=== PATIENT | female | born 1965 | race Two or more races ===

== ENCOUNTER 2016-11-21 19:31 | Inpatient (IN) | payer BC ==
[~2016-11-21] VITALS: Ht 170.2 cm; Wt 107.5 kg
[~2016-11-21 19:31] MED LIST: BACLOFEN10 MG ORAL; CIPRODEX OTIC7.5 M1 LEFT EAR; CRESTOR10 M1 ORAL; GLIPIZIDE5 MG ORAL; INVOKANA100 MG PO; LISINOPRIL5 MG ORAL; LYRICA75 M1 ORAL; NESINA25 MG PO; REGLAN10 MG ORAL; SYNTHROID150 MCG ORAL; cholesterol med PO
[2016-11-21] MEDS ORDERED: LYRICA75 M1 ORAL (19:43)
[2016-11-21] MEDS ORDERED: METFORMIN HCL1000 M1 ORAL (19:43)
[2016-11-21] MEDS ORDERED: GLYXAMBI 25 MG1 EACH PO ×2 (19:43→23:45)
[2016-11-21] MEDS ORDERED: CRESTOR10 M2 ORAL (19:43)
[2016-11-21] MEDS ORDERED: SYNTHROID25 MCG ORAL (19:43)
--- NOTE | 2016-11-21 19:53 | Emergency Room Report ---
History of Present Illness General Chief Complaint: Chest Pain Source: Patient Present Illness HPI Is a 51-year-old female with a history of hypertension. She also has a history of gastric bypass and subsequent incisional hernia surgery. She presents with chief complaint of chest pain and palpitation. Has been on off for last 2 weeks. She said her heart was beating fast for a minute or 2. Now with pressure to her chest area. Radiating to the right side. Also to the back. No nausea no vomiting. No exertional component. She is under more stress recently because her is in the hospital and had bypass surgery. No diaphoresis. No nausea vomiting Allergies: Coded Allergies: MELON (Verified Allergy, Severe, rapid heartbeat, coughing, n/v, 07/12/15) PEANUT (Verified Allergy, Severe, sob, throat closes, 07/12/15) strawberry, melon, (coughing, rapid heartbeat,) venigar wine (rapid heartbeat, coughing), eggplant (nausea/vomiting/coughing) zucchini (rapid heartbeat, coughing, n/v) STRAWBERRY (Verified Allergy, Severe, sob, throat closes, 07/12/15) TRAMADOL (Verified Allergy, Severe, dizziness, nauseaous, 07/12/15) ASPIRIN (Verified Adverse Reaction, Intermediate, 06/06/15) stomach upset KETOROLAC (Verified Adverse Reaction, Intermediate, 06/06/15) stomach upset Uncoded Allergies: eggplant/zucchini (Allergy, Severe, n/v, coughing, rapid heartbeat, 07/12/15 ) venigar wine (Allergy, Severe, rapid heartbeat, coughing, 07/12/15) Patient History Past Medical History: see triage record, old chart reviewed, HTN Past Surgical History: other - Gastric bypass. Hernia surgery. Pertinent Family History: none Social History: Denies: smoking Last Menstrual Period: NOT ANYMORE Now: No Immunizations: other Reviewed Nursing Documentation: PMH: Agreed, PSxH: Agreed Nursing Documentation-PMH Hx Cardiac Problems: Yes Hx Hypertension: Yes Hx Diabetes: Yes Hx Cancer: No Hx Gastrointestinal Problems: Yes - ABDOMINAL PAIN/BLOATING/NAUSEA Review of Systems Eye: Denies: blurred vision, eye pain ENT: Denies: ear pain, nose congestion, throat swelling Respiratory: Denies: cough, shortness of breath Cardiovascular: Reports: chest pain, palpitations Gastrointestinal: Denies: abdominal pain, diarrhea, nausea, vomiting Musculoskeletal: Denies: back pain, joint pain Skin: Denies: rash Neurological: Denies: headache, numbness Endocrine: Denies: increased thirst, increased urine Hematologic/Lymphatic: Denies: easy bruising All Other Systems: negative except mentioned in HPI Physical Exam Vital Signs Date Time Temp Pulse Resp B/P Pulse Ox O2 Delivery O2 Flow Rate FiO2 11/21/16 19:34 97.5 83 20 151/95 98 Room Air vitals with hypertension Sp02 EP Interpretation: reviewed, normal General Appearance: well appearing, no apparent distress, alert Head: normocephalic, atraumatic Eyes: bilateral eye EOMI, bilateral eye PERRL ENT: hearing grossly normal, normal pharynx Neck: full range of motion, supple, no meningismus Respiratory: chest non-tender, lungs clear, normal breath sounds Cardiovascular #1: regular rate, rhythm, no murmur Gastrointestinal: normal bowel sounds, non tender, no mass, no organomegaly, no bruit, non-distended Musculoskeletal: back normal, gait/station normal, normal range of motion Psychiatric: mood/affect normal Skin: warm/dry Medical Decision Making Diagnostic Impression: Primary Impression: Chest pain Qualified Codes: R07.9 - Chest pain, unspecified Additional Impression: Palpitations ER Course Patient presents with chest pain. Also has palpitation. This may be stress related. She does have risk factor for CAD with hypertension, diabetes, obesity. Will admit for further workup. Patient's primary care doctor is Dr. Bhardwaj but because of insurance, she will be admitted to Dr. Brownlee. I discussed the case with both these doctors. EKG Diagnostic Results EKG Time: 20:00 Rate: normal Rhythm: NSR ST Segments: no acute changes Rhythm Strip Diag. Results Rhythm Strip Time: 20:00 EP Interpretation: yes Rate: 70 Rhythm: NSR, no PVC's, no ectopy Chest X-Ray Diagnostic Results Chest X-Ray Diagnostic Results : Chest X-Ray Ordered: Yes # of Views/Limited/Complete: 1 View Indication: Chest Pain EP Interpretation: Yes Interpretation: no consolidation, no effusion, no pneumothorax, no acute cardiopulmonary disease Impression: No acute disease Interpreting ER Provider: Electronically signed by Dc Hathaway MD Last Vital Signs Date Time Temp Pulse Resp B/P Pulse Ox O2 Delivery O2 Flow Rate FiO2 11/21/16 19:34 97.5 83 20 151/95 98 Room Air Status: improved Disposition: ADMITTED INPATIENT Condition: Serious DC HATHAWAY M.D. Nov 21, 2016 19:53
[2016-11-21] MEDS ORDERED: Pantoprazole Inj IVP ONE (20:00)
[2016-11-21] MEDS ORDERED: Mylanta II UD 30ml ORAL ONE (20:00)
[2016-11-21] MEDS ORDERED: Aspirin Baby 81mg ORAL ONE (20:00)
[2016-11-21 20:05] VITALS: BP 146/69
[2016-11-21 20:20] LABS: EOSINOPHILS % (AUTO) 1.1 % (0.0-3.0); LYMPHOCYTES % (AUTO) 25.9 % (20.0-45.0); MEAN CORPUSCULAR HGB CONC 30.6 G/DL (32.0-36.0); MEAN CORPUSCULAR VOLUME 78 FL (80-99); MEAN PLATELET VOLUME 10.5 FL (6.5-10.1); NEUTROPHILS % (AUTO) 66.1 % (45.0-75.0); PLATELET COUNT 228 K/UL (150-450); RED BLOOD COUNT 4.99 M/UL (4.20-5.40); RED CELL DISTRIBUTION WIDTH 15.5 % (11.6-14.8)
[2016-11-21 20:39] LABS: ALBUMIN/GLOBULIN RATIO 1.5 (1.0-2.7); CALCIUM 9.7 mg/dL (8.6-10.2); GLOMERULAR FILTRATION RATE 58.2 mL/min (>60); POTASSIUM 4.3 mEQ/L (3.4-4.9); TOTAL PROTEIN 7.6 g/dL (6.6-8.7); TROPONIN I < 0.30 ng/mL (<=0.30)
[2016-11-21 20:47] LABS: APPEARANCE,URINE CLEAR; KETONES,URINE NEGATIVE (NEGATIVE); LEUKOCYTE ESTERASE ,URINE NEGATIVE (NEGATIVE); NITRITE,URINE NEGATIVE (NEGATIVE); PH,URINE 8 (4.5-8.0); PROTEIN,URINE NEGATIVE (NEGATIVE); UROBILINOGEN,URINE NORMAL MG/DL (0.0-1.0)
[2016-11-21 20:49] LABS: CKMB 1.9 ng/mL (< 3.8)
[2016-11-21] MEDS ORDERED: Morphine Sulfate 4mg/ml Inj IVP ONE (21:15)
[2016-11-21 21:26] VITALS: BP 140/60
[2016-11-21 22:20] VITALS: BP 138/72
[2016-11-21] MEDS ORDERED: Diltiazem 25mg/5ml IV PRN (22:45)
[2016-11-21] MEDS ORDERED: DuoNeb 0.5-3(2.5)mg/3ml neb HHN PRN (22:45)
[2016-11-21] MEDS ORDERED: Enalaprilat 2.5mg/2ml Inj IV PRN (22:45)
[2016-11-21] MEDS ORDERED: Nitroglycerin Subl 0.4mg tab (Bottle Of 25) SL PRN (22:45)
[2016-11-21] MEDS ORDERED: Miralax 17gm pkt ORAL PRN (22:45)
[2016-11-21] MEDS ORDERED: Morphine Sulfate 2mg/ml Inj IVP PRN (22:45)
[2016-11-21] MEDS ORDERED: Ketorolac 30mg Inj IV PRN (22:45)
[2016-11-21 22:50] VITALS: BP 125/65
[2016-11-21] MEDS ORDERED: Lyrica 75mg cap ORAL ONE (23:45)
[2016-11-21] MEDS ORDERED: Baclofen PO (23:45)
[2016-11-21] MEDS ORDERED: LEVOTHYROXINE25 MCG ORAL (23:45)
[2016-11-21] MEDS ORDERED: Pregabalin PO (23:45)
[2016-11-21] MEDS ORDERED: METFORMIN HCL500 M1 ORAL (23:45)
[2016-11-22] VITALS (7 sets, daily range): BP systolic 114–140; BP diastolic 60–75
[2016-11-22] MEDS: Heparin 5000 units/ml inj SUBQ SCH ×3 (06:12→21:14)
[2016-11-22] MEDS: NovoLOG Insulin Flexpen SUBQ SCH ×4 (06:13→21:13)
[2016-11-22] MEDS ORDERED: SYNTHROID175 MCG ORAL (07:08)
[2016-11-22 07:23] LABS: BASOPHILS % (AUTO) 0.7 % (0.0-2.0); MEAN CORPUSCULAR HEMOGLOBIN 23.9 PG (27.0-31.0); MEAN CORPUSCULAR HGB CONC 30.6 G/DL (32.0-36.0); MEAN CORPUSCULAR VOLUME 78 FL (80-99); MEAN PLATELET VOLUME 10.4 FL (6.5-10.1); MONOCYTES % (AUTO) 6.7 % (1.0-10.0); NEUTROPHILS % (AUTO) 71.6 % (45.0-75.0); PLATELET COUNT 197 K/UL (150-450); RED BLOOD COUNT 4.46 M/UL (4.20-5.40); RED CELL DISTRIBUTION WIDTH 16.2 % (11.6-14.8); WHITE BLOOD COUNT 4.9 K/UL (4.8-10.8)
[2016-11-22 07:35] LABS: INR 0.9 (0.9-1.1); PROTHROMBIN TIME 9.9 SEC (9.30-11.50)
[2016-11-22 08:03] LABS: TROPONIN I < 0.30 ng/mL (<=0.30)
[2016-11-22 08:07] LABS: CHOLESTEROL/HDL RATIO 2.6 (3.3-4.4); CRP QUANT 0.7 mg/dL (< 0.5)
[2016-11-22 08:10] LABS: THYROID STIMULATING HORMONE 0.821 uIU/mL (0.300-4.500)
[2016-11-22] MEDS: Aspirin Baby 81mg ORAL SCH (08:29)
[2016-11-22] MEDS: Lisinopril 2.5mg tab ORAL SCH (08:30)
--- NOTE | 2016-11-22 08:54 | Diagnostic Imaging Report ---
Indication: CP Technique: XRAY CHEST 1 V Comparison: None. Findings: The cardiomediastinal silhouette is normal. The lungs are clear. There is no evidence of pleural fluid. The bones are unremarkable. Are noted in the lower neck from previous surgery. Impression: Previous surgery in the neck. Otherwise negative.
[2016-11-22] MEDS ORDERED: Lyrica 75mg cap ORAL SCH (09:00)
[2016-11-22] MEDS ORDERED: Levothyroxine 125mcg tab ORAL ONE (10:00)
--- NOTE | 2016-11-22 13:39 | History and Physical ---
History of Present Illness General Date patient seen: Nov 22, 2016 Reason for Hospitalization: Chest Pain Present Illness HPI 51-year-old female with a history of hypertension, gastric stapling presented to ER with chief complaint of chest pain and palpitation. Has been on off for last 2 weeks. She said her heart was beating fast for a minute or 2. Now with pressure to her chest area. Radiating to the right side. Also to the back. No nausea no vomiting. No exertional component. She is under more stress recently because her is in the hospital and had bypass surgery. No diaphoresis. No nausea vomiting Allergies: Coded Allergies: MELON (Verified Allergy, Severe, rapid heartbeat, coughing, n/v, 07/12/15) PEANUT (Verified Allergy, Severe, sob, throat closes, 07/12/15) strawberry, melon, (coughing, rapid heartbeat,) venigar wine (rapid heartbeat, coughing), eggplant (nausea/vomiting/coughing) zucchini (rapid heartbeat, coughing, n/v) STRAWBERRY (Verified Allergy, Severe, sob, throat closes, 07/12/15) TRAMADOL (Verified Allergy, Severe, dizziness, nauseaous, 07/12/15) ASPIRIN (Verified Adverse Reaction, Intermediate, 06/06/15) stomach upset KETOROLAC (Verified Adverse Reaction, Intermediate, 06/06/15) stomach upset Uncoded Allergies: eggplant/zucchini (Allergy, Severe, n/v, coughing, rapid heartbeat, 07/12/15 ) venigar wine (Allergy, Severe, rapid heartbeat, coughing, 07/12/15) Medication History Scheduled Empagliflozin/Linagliptin (Glyxambi 25 mg-5 mg Tablet), 1 EACH PO DAILY, ( Reported) Glipizide* (Glipizide*), 20 MG ORAL BIDAC, (Reported) Levothyroxine Sodium (Synthroid), 175 MCG ORAL DAILY, (Reported) Lisinopril (Lisinopril*), 5 MG ORAL DAILY, (Reported) Metformin Hcl* (Metformin Hcl*), 500 MG ORAL FOUR TIMES A DAY, (Reported) Rosuvastatin Calcium* (Crestor*), 5 MG ORAL DAILY, (Reported) [Pregabalin*], 300 MG PO BEDTIME, (Reported) Scheduled PRN [Baclofen*], 10 MG PO DAILY PRN for Muscle Spasm, (Reported) Discontinued Medications Alogliptin Benzoate (Nesina), 25 MG PO DAILY, (Reported) Discontinued Reason: Therapy completed Baclofen* (Baclofen*), 10 MG ORAL QHS, (Reported) Discontinued Reason: Prescription changed Canagliflozin (Invokana), 100 MG PO DAILY, (Reported) Discontinued Reason: Therapy completed Ciprofloxacin Hcl/Dexameth (Ciprodex Otic Suspension), 4 DROP LEFT EAR TID Discontinued Reason: Therapy completed Empagliflozin/Linagliptin (Glyxambi 25 mg-5 mg Tablet), 1 EACH PO, (Reported) Discontinued Reason: Medication dose changed Levothyroxine Sodium* (Synthroid*), 175 MCG ORAL DAILY, (Reported) Discontinued Reason: Therapy completed Levothyroxine Sodium* (Levothyroxine Sodium*), 25 MCG ORAL DAILY, (Reported) Discontinued Reason: Prescription changed Metformin Hcl* (Metformin Hcl*), 2,000 MG ORAL DAILY, (Reported) Discontinued Reason: Prescription changed Metoclopramide Hcl* (Reglan*), 10 MG ORAL THREE TIMES A DAY, (Reported) Discontinued Reason: Therapy completed Pregabalin* (Lyrica*), 75 MG ORAL QHS, (Reported) Discontinued Reason: Therapy completed Pregabalin* (Lyrica*), 300 MG ORAL THREE TIMES A DAY, (Reported) Discontinued Reason: Prescription changed Rosuvastatin Calcium (Crestor), 10 MG ORAL DAILY, (Reported) Discontinued Reason: Therapy completed Patient History Healthcare decision maker N Resuscitation status Full Code Advanced Directive on File Review of Systems All Other Systems: negative except mentioned in HPI Physical Exam General Appearance: WD/WN, no apparent distress Lines, tubes and drains: peripheral HEENT: normocephalic, atraumatic Neck: non-tender, normal alignment Respiratory/Chest: chest wall non-tender, lungs clear Abdomen: normal bowel sounds, non tender Genitourinary/Rectal: normal genital exam Extremities: normal range of motion Skin Exam: normal pigmentation Last 24 Hour Vital Signs Date Time Temp Pulse Resp B/P Pulse Ox O2 Delivery O2 Flow Rate FiO2 11/22/16 12:00 97.3 81 19 125/75 98 Room Air 11/22/16 08:32 97.2 11/22/16 08:30 114/60 11/22/16 08:00 97.2 73 19 114/60 99 Nasal Cannula 11/22/16 04:00 97.8 78 18 124/72 98 Nasal Cannula 2.0 11/22/16 04:00 73 11/22/16 00:00 97.9 69 20 132/73 99 Room Air 11/22/16 00:00 71 11/21/16 23:00 71 11/21/16 22:50 97.7 71 22 125/65 99 Room Air 11/21/16 22:35 97.5 75 20 138/72 98 Room Air 11/21/16 22:20 97.5 75 20 138/72 98 Room Air 11/21/16 21:26 97.5 77 20 140/60 98 Room Air 11/21/16 20:05 83 20 Room Air 11/21/16 20:05 97.5 77 20 146/69 98 Room Air 11/21/16 19:34 97.5 83 20 151/95 98 Room Air Intake and Output 11/21/16 11/22/16 19:00 07:00 Intake Total 240 ml Balance 240 ml Intake Oral 240 ml # Voids 3 Laboratory Tests Test 11/21/16 20:00 11/21/16 20:23 11/22/16 06:25 White Blood Count 7.0 K/UL (4.8-10.8) 4.9 K/UL (4.8-10.8) Red Blood Count 4.99 M/UL (4.20-5.40) 4.46 M/UL (4.20-5.40) Hemoglobin 12.0 G/DL (12.0-16.0) 10.7 G/DL (12.0-16.0) L Hematocrit 39.0 % (37.0-47.0) 34.8 % (37.0-47.0) L Mean Corpuscular Volume 78 FL (80-99) L 78 FL (80-99) L Mean Corpuscular Hemoglobin 24.0 PG (27.0-31.0) L 23.9 PG (27.0-31.0) L Mean Corpuscular Hemoglobin Concent 30.6 G/DL (32.0-36.0) L 30.6 G/DL (32.0-36.0) L Red Cell Distribution Width 15.5 % (11.6-14.8) H 16.2 % (11.6-14.8) H Platelet Count 228 K/UL (150-450) 197 K/UL (150-450) Mean Platelet Volume 10.5 FL (6.5-10.1) H 10.4 FL (6.5-10.1) H Neutrophils (%) (Auto) 66.1 % (45.0-75.0) 71.6 % (45.0-75.0) Lymphocytes (%) (Auto) 25.9 % (20.0-45.0) 20.0 % (20.0-45.0) Monocytes (%) (Auto) 6.0 % (1.0-10.0) 6.7 % (1.0-10.0) Eosinophils (%) (Auto) 1.1 % (0.0-3.0) 1.0 % (0.0-3.0) Basophils (%) (Auto) 1.0 % (0.0-2.0) 0.7 % (0.0-2.0) Sodium Level 141 mEQ/L (135-145) Potassium Level 4.3 mEQ/L (3.4-4.9) Chloride Level 101 mEQ/L (98-107) Carbon Dioxide Level 28 mEQ/L (20-30) Anion Gap 12 (5-15) Blood Urea Nitrogen 13 mg/dL (7-23) Creatinine 1.0 mg/dL (0.5-0.9) H Estimat Glomerular Filtration Rate 58.2 mL/min (>60) Glucose Level 138 mg/dL (74-106) H Calcium Level 9.7 mg/dL (8.6-10.2) Total Bilirubin 0.2 mg/dL (0.0-1.2) Aspartate Amino Transf (AST/SGOT) 17 U/L (5-40) Alanine Aminotransferase (ALT/SGPT) 20 U/L (3-33) Alkaline Phosphatase 93 U/L (35-104) Total Creatine Kinase 57 U/L (26-140) Creatine Kinase MB 1.9 ng/mL (< 3.8) Creatine Kinase MB Relative Index 3.3 Troponin I < 0.30 ng/mL (<=0.30) < 0.30 ng/mL (<=0.30) Total Protein 7.6 g/dL (6.6-8.7) Albumin 4.6 g/dL (3.5-5.2) Globulin 3.0 g/dL Albumin/Globulin Ratio 1.5 (1.0-2.7) Urine Color Pale yellow Urine Appearance Clear Urine pH 8 (4.5-8.0) Urine Specific [place] 1.015 (1.005-1.035) Urine Protein Negative (NEGATIVE) Urine Glucose (UA) 4+ (NEGATIVE) H Urine Ketones Negative (NEGATIVE) Urine Occult Blood Negative (NEGATIVE) Urine Nitrite Negative (NEGATIVE) Urine Bilirubin Negative (NEGATIVE) Urine Urobilinogen Normal MG/DL (0.0-1.0) Urine Leukocyte Esterase Negative (NEGATIVE) Prothrombin Time 9.9 SEC (9.30-11.50) Prothromb Time International Ratio 0.9 (0.9-1.1) Activated Partial Thromboplast Time 27 SEC (23-33) C-Reactive Protein, Quantitative 0.7 mg/dL (< 0.5) H Triglycerides Level 171 mg/dL (< 150) H Cholesterol Level 113 mg/dL (< 200) LDL Cholesterol 36 mg/dL (60-99) L HDL Cholesterol 43 mg/dL (> 60) Cholesterol/HDL Ratio 2.6 (3.3-4.4) L Thyroid Stimulating Hormone (TSH) 0.821 uIU/mL (0.300-4.500) Height (Feet): 5 Height (Inches): 6.00 Weight (Pounds): 239 Medications Current Medications Medications (Trade) Dose Ordered Sig/[place] Route PRN Reason Start Time Stop Time Status Last Admin Dose Admin Acetaminophen (Tylenol) 650 mg Q4H PRN ORAL Fever/Headache/Mild Pain 11/22/16 08:00 12/22/16 07:59 11/22/16 07:17 Albuterol/ Ipratropium (DuoNeb 0.5-3(2.5)mg/3ml) 3 ml EVERY 4 HOURS PRN HHN Shortness of Breath 11/21/16 22:45 11/26/16 22:44 Aspirin (ASA) 162 mg DAILY ORAL 11/22/16 09:00 12/22/16 08:59 11/22/16 08:29 Baclofen (Lioresal) 10 mg QHS ORAL 11/22/16 21:00 12/22/16 20:59 Dextrose (Dextrose 50%) STAT PRN IV Hypoglycemia 11/21/16 22:45 12/21/16 22:44 Diltiazem HCl (Cardizem) 10 mg EVERY HOUR PRN IV heart rate more than 120, 11/21/16 22:45 12/21/16 22:44 Enalaprilat (Vasotec) 2.5 mg EVERY 6 HOURS PRN IV sbp more than 160 11/21/16 22:45 12/21/16 22:44 Heparin Sodium (Porcine) (Heparin 5000 units/ml) 5,000 units EVERY 8 HOURS SUBQ 11/22/16 06:00 12/22/16 05:59 11/22/16 06:12 Insulin Aspart (NovoLOG) BEFORE MEALS AND HS SUBQ 11/22/16 06:30 12/22/16 06:29 11/22/16 06:13 Levothyroxine Sodium (Synthroid) 75 mcg DAILY@0630 ORAL 11/23/16 06:30 12/23/16 06:29 Levothyroxine Sodium (Synthroid) 100 mcg DAILY@0630 ORAL 11/23/16 06:30 12/23/16 06:29 Lisinopril (Zestril) 5 mg DAILY ORAL 11/22/16 09:00 12/22/16 08:59 11/22/16 08:30 Morphine Sulfate (Morphine Sulfate) 2 mg EVERY 4 HOURS PRN IVP severe Pain (Pain Scale 7-10) 11/21/16 22:45 11/28/16 22:44 Nitroglycerin (Ntg) 0.4 mg Every 5 Minutes PRN SL Prn Chest Pain 11/21/16 22:45 12/21/16 22:44 Ondansetron HCl (Zofran) 4 mg Q6H PRN IVP Nausea & Vomiting 11/21/16 22:45 12/21/16 22:44 11/22/16 04:30 Pantoprazole (Protonix) 40 mg DAILY ORAL 11/22/16 09:00 12/22/16 08:59 11/22/16 08:29 Polyethylene Glycol (Miralax) 17 gm DAILYPRN PRN ORAL Constipation 11/21/16 22:45 12/21/16 22:44 Pregabalin (Lyrica) 300 mg BEDTIME ORAL 11/22/16 21:00 12/22/16 20:59 Temazepam (Restoril) 15 mg HSPRN PRN ORAL Insomnia 11/21/16 22:45 11/28/16 22:44 Assessment/Plan Problem List: (1) Palpitations ICD Codes: R00.2 - Palpitations SNOMED: 01274227, [id number] Assessment/Plan serial ekg troponin echo GI evaluation symptomatic evaluation GER DUNCAN Nov 22, 2016 13:39
[2016-11-22] MEDS: Lyrica 75mg cap ORAL SCH (21:11)
--- NOTE | 2016-11-22 22:17 | Consultation ---
DATE OF CONSULTATION: 11/22/2016 CARDIOLOGY CONSULTATION REASON FOR EVALUATION: Chest pain. HISTORY OF PRESENT ILLNESS: History is taken from the patient. This is a very pleasant cooperative patient, who has substernal chest pressure on for two weeks, radiating to the right arm, getting worse associated nausea on Wednesday, at night she vomited, and then since that she has pain every time she swallows, it is worse, and it radiates to the right arm and shooting to her back. PAST MEDICAL HISTORY: Significant for gastric stapling 23 years ago, cholecystectomy approximately at the same time, and thyroidectomy for thyroid goiter also approximately at the same time. She has also history of hernia repair postoperatively. Her past medical history also significant for diabetes, obesity, lower extremity edema, and cellulitis of the left leg four years ago. MEDICATIONS: Medications at home were reviewed and reconciled. ALLERGIES: She is allergic to aspirin, ketorolac, and then some food allergies here. HABITS: No history of drinking, smoking, or drug abuse. SOCIAL HISTORY: Independent. FAMILY HISTORY: Both parents has history of coronary artery disease, diabetes, and hyperlipidemia. No history of hypertension and no history of smoking. Positive family history possibly, but not clear at what age. REVIEW OF SYSTEMS: Besides pain and nausea, she has lower extremity edema, which is worse at the end of the day, more on the left side. Otherwise, review of system was negative. No cardiac history. No syncope, orthopnea, or shortness of breath. PHYSICAL EXAMINATION: GENERAL: Revealed pleasant patient. VITAL SIGNS: Blood pressure 120/70, heart rate 70, oxygen saturation is 98%, and temperature 97.8 degrees. HEENT: PERRLA. EOMI. NECK: Supple. There is postsurgical scar on her neck post thyroidectomy. There is no carotid bruit. No masses in the neck. LUNGS: Scattered few crackles posteriorly. BREAST: No masses. HEART: Regular with essentially normal exam without gallop or murmur. ABDOMEN: Soft. Postsurgical scar. There is some tenderness on palpation in the epigastric area. There is no tenderness on palpation on substernal area or around it on the chest. EXTREMITIES: Lower extremities, trace edema bilaterally. EXTREMITIES: Warm. Distal pulses palpable. LABORATORY DATA: Her EKG is unremarkable. The ECG in the chart from 11/21/2016 shows poor RV progression in precordial leads without acute ST or T changes and she has otherwise no significant abnormalities. Chest x-ray is normal. Troponin is normal. The rest of the laboratories were reviewed. Hemoglobin is 10.7 today. Blood sugar is noted. IMPRESSION AND RECOMMENDATION: The patient has chest pain suggestive of esophagitis or esophageal process. I doubt it is cardiac etiology, however she has multiple coronary risk factors, so based on that she needs a stress test and echo and I would also recommend gastrointestinal evaluation for this patient. Thank you very much for your consultation. Dr. Wise is going to take over tomorrow morning. Uyen Gates M.D. DR: NEVILLE JOB#: [id number] CC:
[2016-11-23 04:00] VITALS: BP 140/76
[2016-11-23] MEDS: Heparin 5000 units/ml inj SUBQ SCH ×3 (06:26→22:00)
[2016-11-23] MEDS: NovoLOG Insulin Flexpen SUBQ SCH ×4 (06:30→21:14)
[2016-11-23 07:41] LABS: BASOPHILS % (AUTO) 0.7 % (0.0-2.0); EOSINOPHILS % (AUTO) 1.5 % (0.0-3.0); MEAN CORPUSCULAR HEMOGLOBIN 24.6 PG (27.0-31.0); MEAN CORPUSCULAR HGB CONC 31.5 G/DL (32.0-36.0); MEAN CORPUSCULAR VOLUME 78 FL (80-99); MEAN PLATELET VOLUME 10.9 FL (6.5-10.1); NEUTROPHILS % (AUTO) 59.8 % (45.0-75.0); PLATELET COUNT 192 K/UL (150-450); RED BLOOD COUNT 4.65 M/UL (4.20-5.40); RED CELL DISTRIBUTION WIDTH 16.2 % (11.6-14.8); WHITE BLOOD COUNT 3.9 K/UL (4.8-10.8)
[2016-11-23 07:58] LABS: PROTHROMBIN TIME 10.4 SEC (9.30-11.50)
[2016-11-23 07:59] VITALS: BP 121/65
[2016-11-23 08:01] LABS: TROPONIN I < 0.30 ng/mL (<=0.30)
[2016-11-23] MEDS: Aspirin Baby 81mg ORAL SCH (08:51)
[2016-11-23] MEDS: Lisinopril 2.5mg tab ORAL SCH (08:51)
[2016-11-23 09:13] LABS: ERYTHROCYTE SEDIMENTATION RATE 28 MM/HR (0-30)
[2016-11-23 10:27] LABS: BAND NEUTROPHILS % (MANUAL) 0 % (0-8); BASOPHILS % (MANUAL) 0 % (0-2); EOSINOPHILS % (MANUAL) 4 % (0-3); LYMPHOCYTES % (MANUAL) 27 % (20-45); NEUTROPHILS % (MANUAL) 63 % (45-75); PLATELET ESTIMATE ADEQUATE; TOTAL CELLS COUNTED 100
[2016-11-23 10:28] LABS: HYPOCHROMASIA 1+; MICROCYTES 1+
[2016-11-23 10:29] LABS: ANISOCYTOSIS 1+
[2016-11-23 10:31] LABS: POLYCHROMASIA 1+
[2016-11-23 11:13] LABS: RETICULOCYTE COUNT 2.2 % (0.0-2.0)
[2016-11-23 11:28] VITALS: BP 105/68
[2016-11-23] MEDS ORDERED: Adenosine Inj IVP ONE (13:00)
[2016-11-23 15:23] VITALS: BP 122/73
--- NOTE | 2016-11-23 16:57 | Diagnostic Imaging Report ---
Indications: Chest pain Technique: Single day single isotope protocol utilized. Initially, resting images obtained using IV administration 10.5 millicuries 99M technetium Myoview. Subsequently, patient underwent stress testing. See cardiology report for details. During adenosine infusion, IV administration 30.1 mCi 99 M technetium Myoview. SPECT and planar images obtained. SPECT images gated to 8 phases of the cardiac cycle were also obtained, and reformatted into cine images for evaluation of ejection fraction. Comparison: None Findings: Per cardiology report, patient experienced chest pressure. Per cardiology report, resting EKG demonstrates normal sinus rhythm. Equivocal nonspecific T-wave inversion in the inferolateral leads noted.. On imaging, no fixed nor reversible post stress perfusion defects are demonstrated. Normal cardiac chamber size. Calculated post stress ejection fraction is 71%. No focal wall motion abnormality demonstrated Impression: Ischemic clinical response to pharmacologic stress, per cardiology report Equivocal electrocardiographic response to pharmacologic stress, per cardiology report No imaging findings to suggest ischemia, at level of stress achieved. Calculated post stress ejection fraction 71%
--- NOTE | 2016-11-23 17:32 | Pulmonology Progress Note ---
Assessment/Plan Problems: (1) Palpitations (2) Chest pain (3) History of bariatric surgery Assessment/Plan f/u stress tests results GI f/u symptomatic treatment Subjective ROS Limited/Unobtainable: No Interval Events: stress test done, results pending Allergies: Coded Allergies: MELON (Verified Allergy, Severe, rapid heartbeat, coughing, n/v, 07/12/15) PEANUT (Verified Allergy, Severe, sob, throat closes, 07/12/15) strawberry, melon, (coughing, rapid heartbeat,) venigar wine (rapid heartbeat, coughing), eggplant (nausea/vomiting/coughing) zucchini (rapid heartbeat, coughing, n/v) STRAWBERRY (Verified Allergy, Severe, sob, throat closes, 07/12/15) TRAMADOL (Verified Allergy, Severe, dizziness, nauseaous, 07/12/15) ASPIRIN (Verified Adverse Reaction, Intermediate, 06/06/15) stomach upset KETOROLAC (Verified Adverse Reaction, Intermediate, 06/06/15) stomach upset Uncoded Allergies: eggplant/zucchini (Allergy, Severe, n/v, coughing, rapid heartbeat, 07/12/15 ) venigar wine (Allergy, Severe, rapid heartbeat, coughing, 07/12/15) Objective Last 24 Hour Vital Signs Date Time Temp Pulse Resp B/P Pulse Ox O2 Delivery O2 Flow Rate FiO2 11/23/16 15:23 98.1 95 18 122/73 99 Room Air 11/23/16 11:43 80 11/23/16 11:28 97.9 83 18 105/68 97 Room Air 11/23/16 09:41 76 18 Room Air 21 11/23/16 08:51 121/65 11/23/16 07:59 97.2 76 18 121/65 100 Room Air 11/23/16 07:26 81 11/23/16 04:00 75 11/23/16 04:00 97.7 82 18 140/76 97 Room Air 11/23/16 00:00 85 11/22/16 23:50 97.5 75 18 127/63 95 Room Air 11/22/16 20:00 97.9 75 18 140/72 98 Room Air 11/22/16 20:00 85 Intake and Output 11/22/16 11/23/16 19:00 07:00 # Voids 3 2 General Appearance: WD/WN HEENT: normocephalic, atraumatic Respiratory/Chest: chest wall non-tender, lungs clear Breasts: no masses Cardiovascular: normal peripheral pulses, no JVD Genitourinary: normal external genitalia Extremities: no cyanosis Laboratory Tests 11/23/16 07:00: White Blood Count 3.9L, Red Blood Count 4.65, Hemoglobin 11.5L, Hematocrit 36.5L , Mean Corpuscular Volume 78L, Mean Corpuscular Hemoglobin 24.6L, Mean Corpuscular Hemoglobin Concent 31.5L, Red Cell Distribution Width 16.2H, Platelet Count 192, Mean Platelet Volume 10.9H, Neutrophils (%) (Auto) 59.8, Lymphocytes (%) (Auto) 30.0, Monocytes (%) (Auto) 8.0, Eosinophils (%) (Auto) 1.5, Basophils (%) (Auto) 0.7, Differential Total Cells Counted 100, Neutrophils % (Manual) 63, Lymphocytes % (Manual) 27, Monocytes % (Manual) 6, Eosinophils % (Manual) 4H, Basophils % (Manual) 0, Band Neutrophils 0, Platelet Estimate Adequate, Platelet Morphology , Giant Platelets Occasional, Polychromasia 1+, Hypochromasia 1+, Anisocytosis 1+, Microcytosis 1+, Erythrocyte Sedimentation Rate 28, Reticulocyte Count 2.2H, Prothrombin Time 10.4, Prothromb Time International Ratio 1.0, Activated Partial Thromboplast Time 29, Iron Level 39, Total Iron Binding Capacity 413H, Percent Iron Saturation 9L, Unsaturated Iron Binding 374H, Lactate Dehydrogenase 151, Troponin I < 0.30, Carcinoembryonic Antigen 1.1, Vitamin B12 Level 440, Folate [ Pending] Current Medications Medications (Trade) Dose Ordered Sig/[place] Route PRN Reason Start Time Stop Time Status Last Admin Dose Admin Acetaminophen (Tylenol) 650 mg Q4H PRN ORAL Fever/Headache/Mild Pain 11/22/16 08:00 12/22/16 07:59 11/23/16 08:53 Albuterol/ Ipratropium (DuoNeb 0.5-3(2.5)mg/3ml) 3 ml EVERY 4 HOURS PRN HHN Shortness of Breath 11/21/16 22:45 11/26/16 22:44 Aspirin (ASA) 162 mg DAILY ORAL 11/22/16 09:00 12/22/16 08:59 11/23/16 08:51 Baclofen (Lioresal) 10 mg QHS ORAL 11/22/16 21:00 12/22/16 20:59 11/22/16 21:11 Dextrose (Dextrose 50%) STAT PRN IV Hypoglycemia 11/21/16 22:45 12/21/16 22:44 Diltiazem HCl (Cardizem) 10 mg EVERY HOUR PRN IV heart rate more than 120, 11/21/16 22:45 12/21/16 22:44 Enalaprilat (Vasotec) 2.5 mg EVERY 6 HOURS PRN IV sbp more than 160 11/21/16 22:45 12/21/16 22:44 Heparin Sodium (Porcine) (Heparin 5000 units/ml) 5,000 units EVERY 8 HOURS SUBQ 11/22/16 06:00 12/22/16 05:59 11/23/16 15:06 Insulin Aspart (NovoLOG) BEFORE MEALS AND HS SUBQ 11/22/16 06:30 12/22/16 06:29 11/23/16 16:49 Iron Sucrose/ Sodium Chloride (Venofer/Sodium Chloride) 60 ml @ 240 mls/hr BEDTIME IVPB 11/23/16 21:00 11/24/16 21:14 Levothyroxine Sodium (Synthroid) 75 mcg DAILY@0630 ORAL 11/23/16 06:30 12/23/16 06:29 11/23/16 06:30 Levothyroxine Sodium 100 mcg 100 mcg DAILY@0630 ORAL 11/23/16 06:30 12/23/16 06:29 11/23/16 06:30 Lisinopril (Zestril) 5 mg DAILY ORAL 11/22/16 09:00 12/22/16 08:59 11/23/16 08:51 Morphine Sulfate (Morphine Sulfate) 2 mg EVERY 4 HOURS PRN IVP severe Pain (Pain Scale 7-10) 11/21/16 22:45 11/28/16 22:44 11/22/16 22:30 Nitroglycerin (Ntg) 0.4 mg Every 5 Minutes PRN SL Prn Chest Pain 11/21/16 22:45 12/21/16 22:44 Ondansetron HCl (Zofran) 4 mg Q6H PRN IVP Nausea & Vomiting 11/21/16 22:45 12/21/16 22:44 11/22/16 04:30 Pantoprazole (Protonix) 40 mg DAILY ORAL 11/22/16 09:00 12/22/16 08:59 11/23/16 08:50 Polyethylene Glycol (Miralax) 17 gm DAILYPRN PRN ORAL Constipation 11/21/16 22:45 12/21/16 22:44 Pregabalin (Lyrica) 300 mg BEDTIME ORAL 11/22/16 21:00 12/22/16 20:59 11/22/16 21:11 Temazepam (Restoril) 15 mg HSPRN PRN ORAL Insomnia 11/21/16 22:45 11/28/16 22:44 GER DUNCAN Nov 23, 2016 17:32
--- NOTE | 2016-11-23 19:07 | Cardiology Progress Note ---
Assessment/Plan Assessment/Plan chest pain pain on swallowing stress tet neg dc tele gi yoder trop neg echo prelim neg Subjective Cardiovascular: Reports: chest pain - swalloign , Denies: lightheadedness, palpitations Respiratory: Denies: SOB with excertion, shortness of breath Gastrointestinal/Abdominal: Denies: abdominal pain Genitourinary: Denies: burning Objective Last 24 Hour Vital Signs Date Time Temp Pulse Resp B/P Pulse Ox O2 Delivery O2 Flow Rate FiO2 11/23/16 15:50 96 11/23/16 15:23 98.1 95 18 122/73 99 Room Air 11/23/16 11:43 80 11/23/16 11:28 97.9 83 18 105/68 97 Room Air 11/23/16 09:41 76 18 Room Air 21 11/23/16 08:51 121/65 11/23/16 07:59 97.2 76 18 121/65 100 Room Air 11/23/16 07:26 81 11/23/16 04:00 75 11/23/16 04:00 97.7 82 18 140/76 97 Room Air 11/23/16 00:00 85 11/22/16 23:50 97.5 75 18 127/63 95 Room Air 11/22/16 20:00 97.9 75 18 140/72 98 Room Air 11/22/16 20:00 85 General Appearance: no apparent distress, alert Neck: supple Cardiovascular: normal rate, regular rhythm Respiratory/Chest: lungs clear, normal breath sounds Abdomen: normal bowel sounds, non tender, soft Extremities: no swelling Intake and Output 11/22/16 11/23/16 19:00 07:00 # Voids 3 2 Laboratory Tests Test 11/23/16 07:00 11/23/16 17:34 White Blood Count 3.9 K/UL (4.8-10.8) L Red Blood Count 4.65 M/UL (4.20-5.40) Hemoglobin 11.5 G/DL (12.0-16.0) L Hematocrit 36.5 % (37.0-47.0) L Mean Corpuscular Volume 78 FL (80-99) L Mean Corpuscular Hemoglobin 24.6 PG (27.0-31.0) L Mean Corpuscular Hemoglobin Concent 31.5 G/DL (32.0-36.0) L Red Cell Distribution Width 16.2 % (11.6-14.8) H Platelet Count 192 K/UL (150-450) Mean Platelet Volume 10.9 FL (6.5-10.1) H Neutrophils (%) (Auto) 59.8 % (45.0-75.0) Lymphocytes (%) (Auto) 30.0 % (20.0-45.0) Monocytes (%) (Auto) 8.0 % (1.0-10.0) Eosinophils (%) (Auto) 1.5 % (0.0-3.0) Basophils (%) (Auto) 0.7 % (0.0-2.0) Differential Total Cells Counted 100 Neutrophils % (Manual) 63 % (45-75) Lymphocytes % (Manual) 27 % (20-45) Monocytes % (Manual) 6 % (1-10) Eosinophils % (Manual) 4 % (0-3) H Basophils % (Manual) 0 % (0-2) Band Neutrophils 0 % (0-8) Platelet Estimate Adequate Platelet Morphology Giant Platelets Occasional Polychromasia 1+ Hypochromasia 1+ Anisocytosis 1+ Microcytosis 1+ Erythrocyte Sedimentation Rate 28 MM/HR (0-30) Reticulocyte Count 2.2 % (0.0-2.0) H Prothrombin Time 10.4 SEC (9.30-11.50) Prothromb Time International Ratio 1.0 (0.9-1.1) Activated Partial Thromboplast Time 29 SEC (23-33) Iron Level 39 ug/dL (37-145) Total Iron Binding Capacity 413 ug/dL (250-400) H Percent Iron Saturation 9 % (15-50) L Unsaturated Iron Binding 374 ug/dL (112-346) H Lactate Dehydrogenase 151 U/L (135-230) Troponin I < 0.30 ng/mL (<=0.30) Carcinoembryonic Antigen 1.1 ng/mL Vitamin B12 Level 440 pg/mL (211-946) Folate Pending Stool Occult Blood Pending JAVI ARCEO Nov 23, 2016 19:07
[2016-11-23 20:00] VITALS: BP 131/75
[2016-11-23] MEDS ORDERED: Iron Sucrose 100 MG in NS 55 ML IVPB SCH (21:00)
[2016-11-23] MEDS: Lyrica 75mg cap ORAL SCH (21:13)
[2016-11-23] MEDS ORDERED: Nitroglycerin Subl 0.4mg tab (Bottle Of 25) SL PRN (22:30)
[2016-11-23] MEDS ORDERED: Miralax 17gm pkt ORAL PRN (22:45)
[2016-11-24] VITALS (7 sets, daily range): BP systolic 111–146; BP diastolic 58–76
[2016-11-24] MEDS ORDERED: DuoNeb 0.5-3(2.5)mg/3ml neb HHN PRN (01:00)
[2016-11-24] MEDS ORDERED: Morphine Sulfate 2mg/ml Inj IVP PRN (01:00)
[2016-11-24] MEDS: Heparin 5000 units/ml inj SUBQ SCH ×2 (05:08→14:00)
[2016-11-24] MEDS: NovoLOG Insulin Flexpen SUBQ SCH ×3 (05:50→11:30)
[2016-11-24 06:27] LABS: BASOPHILS % (AUTO) 0.7 % (0.0-2.0); LYMPHOCYTES % (AUTO) 23.8 % (20.0-45.0); MEAN CORPUSCULAR HEMOGLOBIN 24.1 PG (27.0-31.0); MEAN CORPUSCULAR HGB CONC 30.8 G/DL (32.0-36.0); MEAN CORPUSCULAR VOLUME 78 FL (80-99); MEAN PLATELET VOLUME 10.5 FL (6.5-10.1); NEUTROPHILS % (AUTO) 66.4 % (45.0-75.0); PLATELET COUNT 183 K/UL (150-450); RED BLOOD COUNT 4.46 M/UL (4.20-5.40); RED CELL DISTRIBUTION WIDTH 15.6 % (11.6-14.8); WHITE BLOOD COUNT 4.7 K/UL (4.8-10.8)
[2016-11-24 06:34] LABS: INR 0.9 (0.9-1.1); PROTHROMBIN TIME 9.9 SEC (9.30-11.50)
[2016-11-24 07:23] LABS: ANION GAP 12 (5-15); CALCIUM 9.2 mg/dL (8.6-10.2); CARBON DIOXIDE 25 mEQ/L (20-30); CHLORIDE 103 mEQ/L (98-107); CREATININE 0.6 mg/dL (0.5-0.9); GLOMERULAR FILTRATION RATE > 60 mL/min (>60); HEMOLYSIS 4; POTASSIUM 3.9 mEQ/L (3.4-4.9); SODIUM 140 mEQ/L (135-145)
[2016-11-24] MEDS ORDERED: D5 1/2NS 1,000 ML IV SCH (08:30)
[2016-11-24] MEDS ORDERED: Aspirin Baby 81mg ORAL SCH (09:00)
[2016-11-24] MEDS ORDERED: Lisinopril 2.5mg tab ORAL SCH (09:00)
[2016-11-24] MEDS ORDERED: Tubing IV Secondary IV ONE (10:53)
[2016-11-24] MEDS ORDERED: NS 275ml ONE (10:53)
[2016-11-24] MEDS ORDERED: Propofol 10mg/ml 20ml IV ONE (12:00)
[2016-11-24] MEDS ORDERED: NS 550ML IV ONE (12:15)
--- NOTE | 2016-11-24 12:26 | Pre-Procedure Note/Attestation ---
Pre-Procedure Note/Attestation Complete Prior to Procedure Planned Procedure: not applicable Procedure Narrative: egd Indications for Procedure Pre-Operative Diagnosis: GERD Attestation I attest that I discussed the nature of the procedure; its benefits; risks and complications; and alternatives (and the risks and benefits of such alternatives ), prior to the procedure, with the patient (or the patient's legal in home sales representative). I attest that, if there was a reasonable possibility of needing a blood transfusion, the patient (or the patient's legal in home sales representative) was given the [facility] standardized written summary, pursuant to the Amaury [place] Blood Safety Act ([place] Health and Safety Code # 1645, as amended). I attest that I re-evaluated the patient just prior to the surgery and that there has been no change in the patient's H&P, except as documented below: ЕКТАЕРИНА MONGE Nov 24, 2016 12:26
--- NOTE | 2016-11-24 12:28 | Diagnostic Imaging Report ---
APPROVED REPORT CPT Code: 60610 Present Symptoms Lower Extremity Pain: Bilateral BILATERAL: Imaging reveals a patent deep venous system bilaterally. There is no evidence of thrombus within the femoral, popliteal or tibial segments. The greater saphenous veins are also within normal limits. Doppler indicates normal spontaneous flow within these segments.
[2016-11-24] MEDS ORDERED: fentaNYL 100 mcg/2 mL IV PRN (12:30)
[2016-11-24] MEDS ORDERED: Midazolam 2mg/2ml Inj IVP PRN (12:30)
--- NOTE | 2016-11-24 12:37 | Anethesia Preoperative Eval ---
Anesthesia Pre-op PMH/ROS General Date of Evaluation: Nov 24, 2016 Time of Evaluation: 12:10 Anesthesiologist: Hesham ASA Score: ASA 3 Mallampati Score Class I : Soft palate, uvula, fauces, pillars visible Class II: Soft palate, uvula, fauces visible Class III: Soft palate, base of uvula visible Class IV: Only hard plate visible Mallampati Classification: Class II Surgeon: Ramone Diagnosis: Abd pain Surgical Procedure: EGD Allergies: Coded Allergies: MELON (Verified Allergy, Severe, rapid heartbeat, coughing, n/v, 07/12/15) PEANUT (Verified Allergy, Severe, sob, throat closes, 07/12/15) strawberry, melon, (coughing, rapid heartbeat,) venigar wine (rapid heartbeat, coughing), eggplant (nausea/vomiting/coughing) zucchini (rapid heartbeat, coughing, n/v) STRAWBERRY (Verified Allergy, Severe, sob, throat closes, 07/12/15) TRAMADOL (Verified Allergy, Severe, dizziness, nauseaous, 07/12/15) ASPIRIN (Verified Adverse Reaction, Intermediate, 06/06/15) stomach upset KETOROLAC (Verified Adverse Reaction, Intermediate, 06/06/15) stomach upset Uncoded Allergies: eggplant/zucchini (Allergy, Severe, n/v, coughing, rapid heartbeat, 07/12/15 ) venigar wine (Allergy, Severe, rapid heartbeat, coughing, 07/12/15) Medications: see eMAR Past Medical History Cardiovascular: Denies: CAD, HTN, [place], arrhythmia, other, valve dz Pulmonary: Denies: COPD, NELI, asthma, other Gastrointestinal/Genitourinary: Denies: CRI, ESRD, GERD, other Neurologic/Psychiatric: Denies: CVA, TIA, dementia, depression/anxiety, other Endocrine: Reports: DM HEENT: Denies: AFOGNAK (L), AFOGNAK (R), cataract (L), cataract (R), glaucoma, other Hematology/Immune: Denies: DVT, anemia, bleeding disorder, other Musculoskeletal/Integumentary: Denies: DDD, DJD, OA, RA, edema, other Other: obesity PMH Narrative: DM, obesity, chronic pain (neuropathy) PSxH Narrative: gastric stapling, c/s, egd, colonoscopy, cholecystctomy Anesthesia Pre-op Phys. Exam Physician Exam Last Vital Signs Date Time Temp Pulse Resp B/P Pulse Ox O2 Delivery O2 Flow Rate FiO2 11/24/16 08:00 97.0 77 20 139/76 98 Room Air 11/24/16 07:50 21 11/22/16 04:00 2.0 Constitutional: NAD Neurologic: CN 2-12 intact Cardiovascular: RRR, no M/R/G Respiratory: CTA Gastrointestinal: S/NT/ND Airway Exam Mallampati Score: Class II MO: full ROM: full Teeth: intact Anesthesia Pre-op A/P Labs Hematology Test 11/24/16 05:15 White Blood Count 4.7 K/UL (4.8-10.8) L Red Blood Count 4.46 M/UL (4.20-5.40) Hemoglobin 10.7 G/DL (12.0-16.0) L Hematocrit 34.9 % (37.0-47.0) L Mean Corpuscular Volume 78 FL (80-99) L Mean Corpuscular Hemoglobin 24.1 PG (27.0-31.0) L Mean Corpuscular Hemoglobin Concent 30.8 G/DL (32.0-36.0) L Red Cell Distribution Width 15.6 % (11.6-14.8) H Platelet Count 183 K/UL (150-450) Mean Platelet Volume 10.5 FL (6.5-10.1) H Neutrophils (%) (Auto) 66.4 % (45.0-75.0) Lymphocytes (%) (Auto) 23.8 % (20.0-45.0) Monocytes (%) (Auto) 8.0 % (1.0-10.0) Eosinophils (%) (Auto) 1.0 % (0.0-3.0) Basophils (%) (Auto) 0.7 % (0.0-2.0) Coagulation Test 11/24/16 05:15 Prothrombin Time 9.9 SEC (9.30-11.50) Prothromb Time International Ratio 0.9 (0.9-1.1) Activated Partial Thromboplast Time 29 SEC (23-33) Chemistry Test 11/24/16 05:15 Sodium Level 140 mEQ/L (135-145) Potassium Level 3.9 mEQ/L (3.4-4.9) Chloride Level 103 mEQ/L (98-107) Carbon Dioxide Level 25 mEQ/L (20-30) Anion Gap 12 (5-15) Blood Urea Nitrogen 15 mg/dL (7-23) Creatinine 0.6 mg/dL (0.5-0.9) Estimat Glomerular Filtration Rate > 60 mL/min (>60) Glucose Level 146 mg/dL (74-106) H Calcium Level 9.2 mg/dL (8.6-10.2) Studies Pre-op Studies: EKG - nsr Risk Assessment & Plan Plan: G, TIVA Status Change Before Surgery: No Pre-Antibiotics Drug: None CELSA GODINEZ M.D. Nov 24, 2016 12:37
--- NOTE | 2016-11-24 12:37 | Endoscopy Procedure Note ---
Endoscopy Procedure Note Indication for Procedure: abd pain Procedures Performed: EGD Operative Findings/Diagnosis: gastritis Specimen: yes Pt Tolerated Procedure Well: Yes Estimated Blood Loss: none Anesthesiologist: owen Anesthesia: MAC Implant(s) used?: No 50 yrs or older w/o bx or poly: Not Applicable 10yrs. F/U not recommended: Not Applicable ЕКАТЕРИНА MONGE Nov 24, 2016 12:37
--- NOTE | 2016-11-24 12:45 | Immediate Post-Op Evaluation ---
Immediate Post-Op Evalulation Immediate Post-Op Evalulation Procedure: EGD Date of Evaluation: Nov 24, 2016 Time of Evaluation: 12:45 IV Fluids: 250 Blood Pressure Systolic: 111 Blood Pressure Diastolic: 58 Pulse Rate: 78 Respiratory Rate: 18 O2 Sat by Pulse Oximetry: 99 Temperature (Fahrenheit): 97.0 Pain Score (1-10): 0 Nausea: No Vomiting: No Complications No complication Patient Status: awake, patent Drug: None CELSA GODINEZ M.D. Nov 24, 2016 12:45
--- NOTE | 2016-11-24 16:16 | Procedure Note ---
DATE OF PROCEDURE: 11/21/2016 SURGEON: Ruddy Pack M.D. PROCEDURE: Upper endoscopy with biopsy. ANESTHESIOLOGIST: Amaury Dahl M.D. INSTRUMENT: Olympus adult flexible upper endoscope. INDICATION: Abdominal pain. REASON FOR PROCEDURE: The procedure, risks, benefits, and possible consequences, including hemorrhage, aspiration, perforation and infection, and alternative treatments, were explained to the patient/legal guardian by Dr. Ruddy Pack and the patient/legal guardian understood and accepted these risks. DESCRIPTION OF PROCEDURE: After informed consent was obtained and the patient was adequately sedated, Olympus upper endoscope was advanced from the mouth into the second portion of duodenum and retroflexion was performed in the stomach. The patient has a prior history of gastric stapling, which was now opened. There was evidence of hiatal hernia formation from the prior surgery or just a pocket in the proximal body of the stomach. No obvious esophagitis. No obvious ulcerations. No mass or polyp was seen. Random biopsy from antrum was obtained to rule out H. pylori infection. The patient tolerated the procedure well without any complication. SUMMARY FINDINGS: 1. Prior history of gastric stapling, which is now open and there is retained pouch in the proximal body of the stomach. 2. Gastritis, status post biopsy. RECOMMENDATIONS: Follow up biopsy result and treat accordingly. Ruddy Pack M.D. DR: KALEB JOB#: [id number] CC: [place]
[2016-11-24] MEDS ORDERED: Lyrica 75mg cap ORAL SCH (21:00)
[2016-11-24] MEDS ORDERED: Iron Sucrose 100 MG in NS 55 ML IVPB SCH (21:00)
--- NOTE | 2016-11-24 22:50 | Pulmonology Progress Note ---
Assessment/Plan Problems: (1) Palpitations (2) Chest pain (3) History of bariatric surgery Assessment/Plan GI f/u endoscopy results noted swallow evaluation noted, pt got educated symptomatic treatment dc home with outpatient f/u Subjective ROS Limited/Unobtainable: No Constitutional: Reports: no symptoms HEENT: Repors: no symptoms Respiratory: Reports: no symptoms Allergies: Coded Allergies: MELON (Verified Allergy, Severe, rapid heartbeat, coughing, n/v, 07/12/15) PEANUT (Verified Allergy, Severe, sob, throat closes, 07/12/15) strawberry, melon, (coughing, rapid heartbeat,) venigar wine (rapid heartbeat, coughing), eggplant (nausea/vomiting/coughing) zucchini (rapid heartbeat, coughing, n/v) STRAWBERRY (Verified Allergy, Severe, sob, throat closes, 07/12/15) TRAMADOL (Verified Allergy, Severe, dizziness, nauseaous, 07/12/15) ASPIRIN (Verified Adverse Reaction, Intermediate, 06/06/15) stomach upset KETOROLAC (Verified Adverse Reaction, Intermediate, 06/06/15) stomach upset Uncoded Allergies: eggplant/zucchini (Allergy, Severe, n/v, coughing, rapid heartbeat, 07/12/15 ) venigar wine (Allergy, Severe, rapid heartbeat, coughing, 07/12/15) Objective Last 24 Hour Vital Signs Date Time Temp Pulse Resp B/P Pulse Ox O2 Delivery O2 Flow Rate FiO2 11/24/16 13:05 97.5 70 16 127/69 95 Room Air 11/24/16 12:50 79 20 112/66 95 Room Air 11/24/16 12:45 69 15 118/63 99 Simple Mask 6.0 11/24/16 12:45 78 18 99 11/24/16 12:40 97.0 76 15 111/58 99 Simple Mask 6.0 11/24/16 08:00 97.0 77 20 139/76 98 Room Air 11/24/16 07:50 85 18 Room Air 21 11/24/16 05:51 97.3 11/24/16 04:00 96.8 73 20 146/73 98 Room Air 11/24/16 00:00 97.3 79 18 138/75 96 Room Air 11/23/16 23:12 97.0 Intake and Output 11/23/16 11/24/16 19:00 07:00 Intake Total 240 ml 60 ml Balance 240 ml 60 ml Intake Oral 240 ml IV Total 60 ml # Voids 3 2 # Bowel Movements 1 General Appearance: WD/WN HEENT: normocephalic, atraumatic Respiratory/Chest: chest wall non-tender, lungs clear Cardiovascular: normal peripheral pulses, normal rate Abdomen: normal bowel sounds Genitourinary: normal external genitalia Extremities: no cyanosis Laboratory Tests 11/24/16 05:15: White Blood Count 4.7L, Red Blood Count 4.46, Hemoglobin 10.7L, Hematocrit 34.9L , Mean Corpuscular Volume 78L, Mean Corpuscular Hemoglobin 24.1L, Mean Corpuscular Hemoglobin Concent 30.8L, Red Cell Distribution Width 15.6H, Platelet Count 183, Mean Platelet Volume 10.5H, Neutrophils (%) (Auto) 66.4, Lymphocytes (%) (Auto) 23.8, Monocytes (%) (Auto) 8.0, Eosinophils (%) (Auto) 1.0, Basophils (%) (Auto) 0.7, Prothrombin Time 9.9, Prothromb Time International Ratio 0.9, Activated Partial Thromboplast Time 29, Sodium Level 140, Potassium Level 3.9, Chloride Level 103, Carbon Dioxide Level 25, Anion Gap 12, Blood Urea Nitrogen 15, Creatinine 0.6, Estimat Glomerular Filtration Rate > 60, Glucose Level 146H, Calcium Level 9.2 GER DUNCAN Nov 24, 2016 22:50
--- NOTE | 2016-11-26 01:00 | Cardiology Report ---
APPROVED REPORT EKG Measurement Heart [id number] Normal sinus rhythm Low voltage QRS Cannot rule out Anterior infarct, age undetermined Abnormal ECG
--- NOTE | 2016-11-26 07:44 | Cardiology Report ---
APPROVED REPORT EXAM: Two-dimensional and M-mode echocardiogram with Doppler and color Doppler. INDICATION Left ventricular function M-Mode DIMENSIONS IVSd0.6 (0.7-1.1cm)Left Atrium (MM)3.5 (1.6-4.0cm) LVDd4.5 (3.5-5.6cm)Aortic Root2.4 (2.0-3.7cm) PWd0.8 (0.7-1.1cm)Aortic Cusp Exc.1.7 (1.5-2.0cm) LVDs2.8 (2.5-4.0cm) PWs0.8 cm Technically difficult study due to poor acoustic windows. Normal left ventricular chamber size, systolic function and wall motion. Left ventricular ejection fraction estimated to be 55-60%. No evidence of left ventricular hypertrophy. No evidence of pericardial fat or effusion. All other cardiac chamber sizes are within normal limits. Focal aortic valve sclerosis with adequate cusp excursion Thickened mitral valve leaflets with normal excursion. Mitral annulus and aortic root calcification. Pulmonic valve not well visualized. Normal tricuspid valve structure. IVC is normal in size with physiologic collapse. A color flow and spectral Doppler study was performed and revealed: No aortic regurgitation. No mitral regurgitation. Left ventricular diastolic dysfunction grade 1. Mild tricuspid regurgitation. Tricuspid systolic velocities suggests peak right ventricular systolic pressure of 25 mmHg
--- NOTE | 2016-11-26 09:55 | Discharge Summary ---
Discharge Summary Hospital Course Date of Admission Nov 21, 2016 at 22:17 Date of Discharge Nov 24, 2016 at 16:15 Admitting Diagnosis chest pain DAPHNEY Real is a 51 year old female who was admitted on Nov 21, 2016 at 22: 17 for Chest Pain Hospital Course [id number] Discharge Discharge Disposition Patient was discharged to Home (01) Discharge Diagnoses: Enedelia Whitten NP Nov 26, 2016 09:55
--- NOTE | 2016-11-26 16:16 | Discharge Summary 2 SIG ---
DATE OF ADMISSION: 11/21/2016 DATE OF DISCHARGE: 11/24/2016 CONSULTANTS: 1. Marquis Brownlee M.D. 2. Antelmo Wise M.D. BRIEF HOSPITAL COURSE: The patient is a 51-year-old female with history of hypertension, gastric stapling, presented to the ED with chief complaint of chest pain and palpitations that has been on and off for the past two weeks. This was accompanied with palpitations and chest pain radiating to the right side and to the back with no exertional component. On evaluation at ED, EKG showed normal sinus rhythm with no acute changes. Chest x-ray done showed no consolidation, no effusion, no pneumothorax, and no acute cardiopulmonary disease. Due to the patient's risk factors, the patient was admitted to telemetry for cardiac evaluation. EKG was unremarkable. Troponins were negative x3. Echocardiogram done showed ejection fraction of 55% to 60%. Venous duplex of lower extremities was negative for DVT. She underwent a myocardial perfusion scan. There was no findings to suggest ischemia at the level of stress achieved. She also underwent EGD on 11/24/2016 with findings of gastritis and was given PPI. She was eventually discharged home. Advised to follow up with PMD. FINAL DIAGNOSES: 1. Palpitations. 2. Chest pain. 3. Prior bariatric surgery. 4. Gastritis. Marquis Brownlee M.D. I have been assigned to dictate discharge summary on this account and I was not involved in the patient's management. Enedelia Whitten N.P. DR: BENJAMIN JOB#: [id number] CC: [place]
[2016-11-27 14:10] LABS: OTHERS PATHOLOGIST COMMENT; PATH BLOOD SMEAR/OMC SENT TO PATHOLOGIST
== END 2016-11-24 16:15 | disposition home or self-care (01) | DRG 310 ==
LOC: EMR 19:45 → EDBEDREQ 21:57 → 2E 22:17 → 4E 11-23 22:19
PROC: 0DB68ZX Excision of Stomach, Via Natural or Artificial Opening Endoscopic, Diagnostic (ICD-10-PCS; principal; 2016-11-21)
DX: R00.2 Palpitations (principal); E11.9 Type 2 diabetes mellitus without complications; R07.9 Chest pain, unspecified; Z98.84 Bariatric surgery status; Z88.6 Allergy status to analgesic agent; Z88.8 Allergy status to other drugs, medicaments and biological substances; K29.70 Gastritis, unspecified, without bleeding
CPT/HCPCS: 36415; 71010; 74230; 78452; 80048; 80053; 80061; 81003; 82270; 82378; 82550; 82553; 82607; 82746; 82962; 83540; 83550; 83615; 84443; 84484; 85007; 85025; 85044; 85060; 85610; 85651; 85730; 86140; 93005; 93017; 93306; 93970; 94003; 94150; 94664; J1815; J2405

== ENCOUNTER 2017-04-22 07:53 | Day surgery (SDC) | payer BC ==
[~2017-04-22] VITALS: Ht 165.1 cm; Wt 99.8 kg
[2017-04-22] VITALS (7 sets, daily range): BP systolic 140–156; BP diastolic 72–84
--- NOTE | 2017-04-22 06:47 | Anethesia Preoperative Eval ---
Anesthesia Pre-op PMH/ROS General Date of Evaluation: Apr 22, 2017 Time of Evaluation: 06:42 Anesthesiologist: eleno ASA Score: ASA 3 Mallampati Score Class I : Soft palate, uvula, fauces, pillars visible Class II: Soft palate, uvula, fauces visible Class III: Soft palate, base of uvula visible Class IV: Only hard plate visible Mallampati Classification: Class II Surgeon: dagoberto Diagnosis: crohn's disease Surgical Procedure: egd/colonoscopy Anesthesia History: none Social History: smoking - nonsmoker Family History: no anesthesia problems Allergies: Coded Allergies: MELON (Verified Allergy, Severe, rapid heartbeat, coughing, n/v, 04/22/17 ) PEANUT (Verified Allergy, Severe, sob, throat closes, 04/22/17) strawberry, melon, (coughing, rapid heartbeat,) venigar wine (rapid heartbeat, coughing), eggplant (nausea/vomiting/coughing) zucchini (rapid heartbeat, coughing, n/v) STRAWBERRY (Verified Allergy, Severe, sob, throat closes, 04/22/17) TRAMADOL (Verified Allergy, Severe, dizziness, nauseaous, 04/22/17) ASPIRIN (Verified Adverse Reaction, Intermediate, 04/22/17) stomach upset KETOROLAC (Verified Adverse Reaction, Intermediate, 04/22/17) stomach upset Uncoded Allergies: eggplant/zucchini (Allergy, Severe, n/v, coughing, rapid heartbeat, 07/12/15 ) venigar wine (Allergy, Severe, rapid heartbeat, coughing, 07/12/15) Medications: see eMAR Past Medical History Cardiovascular: Reports: HTN Gastrointestinal/Genitourinary: Reports: other - gastritis Endocrine: Reports: DM, hypothyroidism Hematology/Immune: Reports: anemia Other: obesity Anesthesia Pre-op Phys. Exam Physician Exam Last Vital Signs Date Time Temp Pulse Resp B/P (MAP) Pulse Ox O2 Delivery O2 Flow Rate FiO2 04/22/17 08:25 97.4 81 16 152/72 99 Room Air Constitutional: NAD Neurologic: CN 2-12 intact Cardiovascular: RRR Respiratory: CTA Gastrointestinal: S/NT/ND Airway Exam Mallampati Score: Class II MO: full Neck: supple TMD: 2fb ROM: full Teeth: intact Anesthesia Pre-op A/P Risk Assessment & Plan Assessment: asa3 Plan: mac Status Change Before Surgery: No Pre-Antibiotics Drug: MADELEINE Panchal Apr 22, 2017 06:47
[~2017-04-22 07:53] MED LIST changes: +Atropine Inj 1mg/10ml Syr IV PRN; +Baclofen PO; +CRESTOR10 M2 ORAL; +DiphenhydrAMINE 50mg/ml Inj IVP PRN; +GLYXAMBI 25 MG1 EACH PO; +LEVOTHYROXINE25 MCG ORAL; +LR 1000ml 1,000 ML IVLG SCH; +METFORMIN HCL1000 M1 ORAL; +METFORMIN HCL500 M1 ORAL; +Midazolam 2mg/2ml Inj IVP PRN; +Pregabalin PO; +SYNTHROID175 MCG ORAL; +SYNTHROID25 MCG ORAL; +fentaNYL 100 mcg/2 mL IV PRN
[2017-04-22] MEDS ORDERED: LR 1000ml ONE (09:00)
[2017-04-22] MEDS ORDERED: Lidocaine 1% MPF 10mg/ml 5ml ONE (09:00)
[2017-04-22] MEDS ORDERED: Propofol 200mg/20ml IV ONE (09:00)
--- NOTE | 2017-04-22 09:12 | Pre-Procedure Note/Attestation ---
Pre-Procedure Note/Attestation Complete Prior to Procedure Planned Procedure: not applicable Procedure Narrative: EGD/colon Indications for Procedure Pre-Operative Diagnosis: anemia, dysphagia Attestation I attest that I discussed the nature of the procedure; its benefits; risks and complications; and alternatives (and the risks and benefits of such alternatives ), prior to the procedure, with the patient (or the patient's legal hobbies and crafts sales representative). I attest that, if there was a reasonable possibility of needing a blood transfusion, the patient (or the patient's legal hobbies and crafts sales representative) was given the [facility] standardized written summary, pursuant to the Amaury Sunil Blood Safety Act ([place] Health and Safety Code # 1645, as amended). I attest that I re-evaluated the patient just prior to the surgery and that there has been no change in the patient's H&P, except as documented below: FRANCISCO OREILLY Apr 22, 2017 09:12
--- NOTE | 2017-04-22 10:29 | Endoscopy Procedure Note ---
Endoscopy Procedure Note Indication for Procedure: abd pain, bloat, dysphagia, (+) Crohn's disease titers Procedures Performed: EGD, colonoscopy Operative Findings/Diagnosis: see dictation Specimen: yes Pt Tolerated Procedure Well: Yes Estimated Blood Loss: none Anesthesiologist: Indio vivas Anesthesia: MAC Medication Given: see anesthesia record Implant(s) used?: No 50 yrs or older w/o bx or poly: Not Applicable 10yrs. F/U not recommended: Not Applicable If not recommended, why?: FRANCISCO OREILLY Apr 22, 2017 10:29
--- NOTE | 2017-04-22 10:33 | Brief Operative Note ---
Immediate Post Operative Note Operative Note Chief Complaint: bloat, pain, iron deficiency, (+) Crohn's titers Pre-op Diagnosis: anemia, dysphagia Procedure: EGD/Collon Post-op Diagnosis: s/p vertical gastroplasty loose eroded suture - removed bx duo, gastric, LE , UE poor prep colon patchy solid stool up to cecum TI covered with stool - unable to access random (R) and (L) colon biopsies done Surgeon: dagoberto Anesthesiologist: malik vivas Anesthesia: MAC Specimen: yes Complications: none Condition: stable Fluids: see charting Estimated Blood Loss: none Drains: none Implant(s) used?: No FRANCISCO OREILLY Apr 22, 2017 10:33
--- NOTE | 2017-04-22 22:30 | Operative Note - Dictated ---
DATE OF OPERATION: 04/22/2017 GASTROENTEROLOGY PROCEDURE REPORT PROCEDURE: Upper gastrointestinal endoscopy with biopsy as well as colonoscopy with biopsy. SURGEON: Tracy eNff M.D. ANESTHESIA: Please see the separate anesthesiologist notes for details. PRE-ENDOSCOPIC DIAGNOSES: 1. Bloating gas. 2. Abdominal discomfort. 3. Inflammatory bowel disease and titers positive for possible Crohn disease. 4. Iron deficiency anemia. POST-ENDOSCOPIC DIAGNOSES: 1. Likely vertical gastroplasty procedure based on anatomical observation. 2. A 9 cm smaller gastric pouch extending from 36 cm to 44 cm. 3. Long suture material seen in the gastric cardia measuring approximately 6 cm and then it was easily removed with gentle pulling. 4. Status post random biopsies of duodenum, antrum, lower esophagus, and mid esophagus. 5. Very poor colonic preparation with solid stool seen in patches all the way to the cecum making examination suboptimal. 6. Terminal ileum was covered with solid stool and could not be intubated. 7. Status post random biopsies of the right colon and left colon. PROCEDURE IN DETAIL: The procedure, its risks, indications, alternatives, and possible complications including, but not limited to bleeding, infection, perforation, , and anesthesia complications were explained to the patient and informed consent was obtained. The patient was then sedated in the left lateral decubitus position. A diagnostic upper endoscope was introduced through the oropharynx and advanced to the duodenum. The endoscope was then gradually withdrawn and mucosa examined carefully. Examination of the upper gastric mucosa revealed an anatomy, which was typical for vertical gastric biopsy procedure. There was a long narrow pouch measuring approximately 9 cm from 36 to 44 cm, and once this pouch was traversed, the endoscope needed to be retroflexed finding the fundus of the stomach and antrum. The fundus of the stomach contained a 6 cm long suture, which was dangling freely. A gentle traction was applied to it and then it came off and the specimen was retrieved. There was a minimal degree of suture area erosion. The remainder of the upper gastrointestinal examination was unremarkable. Biopsies were sent to pathology for review. The endoscope was removed. The rectal exam was done. The colonoscope was introduced into the rectum and advanced to the cecum. The colonic preparation was felt to be suboptimal, poor, and not appropriate looking at the details of the colonic wall. However, the cecum was reached and the terminal ileum opening was covered with solid stool making it not possible to traverse. The colonic dior, when it could be seen, appeared to be free of inflammatory changes. However, colonic prep visualization was very poor. Biopsies of the right colon and left colon were sent to pathology for review. The colonoscope was removed and the patient was sent to recovery in good condition. COMPLICATIONS: None. ASSESSMENT: This examination was notable for vertical gastroplasty anatomy in this patient, which is the type of bariatric surgery she had about 20 years ago. The terminal ileum unfortunately could not be reached because of the poor colonic preparation. The options were to perform either a capsule endoscopy or other form of imaging such as MR enterography or small bowel followthrough series to evaluate the small bowel for evidence of disease. In addition, the patient was advised to undergo another colonoscopy at a later date to evaluate the colon since she does have iron deficiency anemia. RECOMMENDATIONS: 1. Resume oral diet. 2. Follow up biopsy results. 3. Outpatient followup for discussion regarding above matters. Thank you for asking me to participate in the care of this patient. Tracy Neff M.D. DR: Prasanna JOB#: [id number] CC: Osbaldo Bhardwaj M.D.; Fax#: [phone]
== END 2017-04-22 11:30 | disposition home or self-care (01) ==
LOC: GAS 07:53
DX: K50.90 Crohn's disease, unspecified, without complications (principal); D50.9 Iron deficiency anemia, unspecified; K58.9 Irritable bowel syndrome, unspecified; Z88.6 Allergy status to analgesic agent; Z91.018 Allergy to other foods; I10 Essential (primary) hypertension; E11.9 Type 2 diabetes mellitus without complications; E03.9 Hypothyroidism, unspecified
CPT/HCPCS: 43239; 45380; 82962; J2704; J7120; 94003; 94150

== ENCOUNTER 2017-07-13 08:53 | Outpatient (CLI) | payer BC ==
[~2017-07-13 08:53] MED LIST changes: -Atropine Inj 1mg/10ml Syr IV PRN; -DiphenhydrAMINE 50mg/ml Inj IVP PRN; -LR 1000ml 1,000 ML IVLG SCH; -Midazolam 2mg/2ml Inj IVP PRN; -fentaNYL 100 mcg/2 mL IV PRN
[2017-07-13 09:25] VITALS: BP 127/69
[2017-07-13] MEDS ORDERED: LYRICA75 M1 ORAL (09:32)
--- NOTE | 2017-07-13 09:50 | GI Progress Note ---
Assessment/Plan Problems: (1) Encounter for diagnostic endoscopy ICD Codes: Z01.818 - Encounter for other preprocedural examination SNOMED: 809027967, 963294715 (2) Iron deficiency anemia ICD Codes: D50.9 - Iron deficiency anemia, unspecified SNOMED: 58789461 (3) Weight loss ICD Codes: R63.4 - Abnormal weight loss SNOMED: 72271661, 588506979 (4) Colitis ICD Codes: K52.9 - Noninfective gastroenteritis and colitis, unspecified SNOMED: 52326684 (5) Gastritis ICD Codes: K29.70 - Gastritis, unspecified, without bleeding SNOMED: 7601673 Status: stable Status Narrative Seen with Dr. Pack. Assessment/Plan s/p colonoscopy assessment by Dr. Powell: This examination was notable for vertical gastroplasty anatomy in this patient, which is the type of bariatric surgery she had about 20 years ago. The terminal ileum unfortunately could not be reached because of the poor colonic preparation. The options were to perform either a capsule endoscopy or other form of imaging such as MR enterography or small bowel followthrough series to evaluate the small bowel for evidence pf disease. In addition, the patient was advised to undergo another colonoscopy at a later date to evaluate the colon since she does have iron deficiency anemia. RECOMMENDATIONS: Based on pathology by Dr. Powell, we also recommend for small bowel capsule endoscopy to r/o R&L colitis prior to beginning the patient on any medical treatment/management. will scheduled patient for procedure once authorization is approved, will contact patient. avoid NSAIDs Discussed with Dr. Pack. Thank you for this patient referral, we will follow. Subjective Subjective abdominal pain weight loss (224 lbs today) Objective Last 24 Hour Vital Signs Date Time Temp Pulse Resp B/P (MAP) Pulse Ox O2 Delivery O2 Flow Rate FiO2 07/13/17 09:25 98.0 72 16 127/69 97 98.0 General Appearance: WD/WN, no apparent distress, alert Cardiovascular: normal rate Respiratory/Chest: normal breath sounds, no respiratory distress Abdominal Exam: normal bowel sounds, non tender, soft Extremities: normal range of motion, non-tender Patti Hathaway N.Brandy Jul 13, 2017 09:50
== END 2017-07-13 09:25 | disposition home or self-care (01) ==
LOC: PAN 08:53
DX: Z01.818 Encounter for other preprocedural examination (principal); D50.9 Iron deficiency anemia, unspecified; R63.4 Abnormal weight loss; K52.9 Noninfective gastroenteritis and colitis, unspecified; K29.70 Gastritis, unspecified, without bleeding
CPT/HCPCS: 99212

== ENCOUNTER 2017-09-23 08:15 | Outpatient (CLI) | payer BC ==
[2017-09-23 10:01] VITALS: BP 117/70
--- NOTE | 2017-09-23 15:56 | GI Progress Note ---
Assessment/Plan Problems: (1) Encounter for diagnostic endoscopy ICD Codes: Z01.818 - Encounter for other preprocedural examination SNOMED: 764240669, 606760903 (2) Iron deficiency anemia ICD Codes: D50.9 - Iron deficiency anemia, unspecified SNOMED: 63166228 (3) Weight loss ICD Codes: R63.4 - Abnormal weight loss SNOMED: 75095539, 835910633 Status: stable Status Narrative Seen with Dr. Pack. Assessment/Plan SBCE today. RTC tomorrow for equipment return. The patient was seen and examined at bedside and all new and available data was reviewed in the patients chart. I agree with the above findings, impression and plan. (Patient seen earlier today. Signature stamp does not reflect patient encounter time.). - Ruddy Pack MD Subjective Gastrointestinal/Abdominal: Reports: no symptoms Objective Last 24 Hour Vital Signs Date Time Temp Pulse Resp B/P (MAP) Pulse Ox O2 Delivery O2 Flow Rate FiO2 09/23/17 10:01 97.5 79 16 117/70 100 97.5 General Appearance: WD/WN, no apparent distress, alert Cardiovascular: normal rate Respiratory/Chest: normal breath sounds, no respiratory distress Abdominal Exam: normal bowel sounds, non tender, soft Extremities: normal range of motion, non-tender Abraham Hathaway NP September 23, 2017 15:56
--- NOTE | 2017-09-28 16:30 | Procedure Note ---
DATE OF PROCEDURE: 09/23/2017 SURGEON: Ruddy Pack M.D. PROCEDURE: Capsule endoscopy. INDICATION: Anemia, abdominal pain. REASON FOR PROCEDURE: The procedure, risks, benefits, and possible consequences, including hemorrhage, aspiration, perforation and infection, and alternative treatments, were explained to the patient/legal guardian by Dr. Ruddy Pack and the patient/legal guardian understood and accepted these risks. DESCRIPTION OF PROCEDURE: The patient swallowed the camera. Camera spent about 21 minutes in the stomach before entering the small intestine and camera passed into the colon at the end of the study. There was no evidence of any active bleeding. At this time, no blood or blood products were seen in the small intestine. There was no evidence of any ulcerations, hemangiomas, AVM, or any obvious pathology seen. As I mentioned at the end of the study, capsule entered the colon. SUMMARY OF FINDINGS: No evidence of any obvious source for anemia or abdominal pain with this study. Although capsule endoscopy given this passes through the small intestine and this one actually the patient had a relatively fast passage through the small intestine. The small lesions can be missed. We will recommend the patient to follow up with Dr. Neff, for further management of her symptoms. I want to thank, Dr. Neff, for this kind referral. Ruddy Pack M.D. DR: KALEB JOB#: [id number] CC: Tracy Neff M.D.; Fax#: [phone]
== END 2017-09-23 08:47 | disposition home or self-care (01) ==
LOC: PAN 08:15
DX: Z01.818 Encounter for other preprocedural examination (principal); D50.9 Iron deficiency anemia, unspecified; R63.4 Abnormal weight loss

== ENCOUNTER 2019-06-24 11:19 | Emergency (ER) | payer BC, MEDICAID, OTHER ==
[~2019-06-24] VITALS: Ht 167.6 cm; Wt 95.3 kg
[2019-06-24 11:25] VITALS: BP 146/89
--- NOTE | 2019-06-24 11:30 | NUR ---
ED Nurse Note: patient walked into ED from home with daughter c/o right knee pain for 3 weeks. patient reports MRI done on bilateral knees. patient is alert awake x4 ambulatory, breathing unlabored and even, speaking in full sentences. patient unable to bear weight on the right knee due to pain at this time.
[2019-06-24] MEDS ORDERED: oxyCODONE HCL/Acetaminophen 5/325mg ORAL ONE (13:00)
--- NOTE | 2019-06-24 13:00 | NUR ---
ED Nurse Note: dressings applied to the patient as ordered by Dr. Aldrich.
[2019-06-24] MEDS ORDERED: PERCOCET 5-3251 EACH ORAL (13:07)
[2019-06-24 13:16] VITALS: BP 146/89
--- NOTE | 2019-06-24 13:17 | NUR ---
ER DISCHARGE NOTE: Patient is cleared to be discharged per ERMD DR BECERRA , pt is aox4, on room air, with stable vital signs. pt was given dc and prescription instructions, pt was able to verbalize understanding, pt id band removed without complications. pt is able to ambulate with steady gait. pt took all belongings.
--- NOTE | 2019-06-24 13:18 | NUR ---
ED Nurse Note: wheelchair assistance provided for the patient.
--- NOTE | 2019-06-25 07:22 | Emergency Room Report ---
History of Present Illness General Chief Complaint: Pain Source: Patient, Medical Record Present Illness HPI 54-year-old female presents ED for evaluation of right knee pain. States she is had the pain for weeks. States it is swollen. States she had similar pain in her left knee. States that she paid for it out of pocket MRI for her knees which showed meniscal and ACL tears. Patient states her is a PA and gave her cortisone injections in both knees which helped with the pain but has since returned. States there is progressive swelling to the right knee. patient has been seeing orthopedics. Pain is throbbing, 9 out of 10, nonradiating. Notes difficulty ambulating because of the pain and swelling. No other aggravating relieving factors. Denies any other associated symptoms Allergies: Coded Allergies: MELON (Verified Allergy, Severe, rapid heartbeat, coughing, n/v, 04/22/17 ) PEANUT (Verified Allergy, Severe, sob, throat closes, 04/22/17) strawberry, melon, (coughing, rapid heartbeat,) venigar wine (rapid heartbeat, coughing), eggplant (nausea/vomiting/coughing) zucchini (rapid heartbeat, coughing, n/v) STRAWBERRY (Verified Allergy, Severe, sob, throat closes, 04/22/17) TRAMADOL (Verified Allergy, Severe, dizziness, nauseaous, 04/22/17) ASPIRIN (Verified Adverse Reaction, Intermediate, 04/22/17) stomach upset KETOROLAC (Verified Adverse Reaction, Intermediate, 04/22/17) stomach upset Uncoded Allergies: eggplant/zucchini (Allergy, Severe, n/v, coughing, rapid heartbeat, 07/12/15 ) venigar wine (Allergy, Severe, rapid heartbeat, coughing, 07/12/15) Patient History Past Medical History: none, DM, HTN Past Surgical History: none Pertinent Family History: none Social History: Denies: smoking, alcohol use, drug use Last Menstrual Period: 06/2019 Now: No Immunizations: UTD Reviewed Nursing Documentation: PMH: Agreed; PSxH: Agreed Nursing Documentation-PMH Past Medical History: No History, Except For Hx Cardiac Problems: Yes Hx Hypertension: Yes Hx Diabetes: Yes Hx Cancer: No Hx Gastrointestinal Problems: Yes - ABDOMINAL PAIN/BLOATING/NAUSEA Hx Neurological Problems: Yes Hx Peripheral Neuropathy: Yes - bilateral feet Hx Vertigo: Yes Review of Systems All Other Systems: negative except mentioned in HPI Physical Exam Vital Signs Date Time Temp Pulse Resp B/P (MAP) Pulse Ox O2 Delivery O2 Flow Rate FiO2 06/24/19 11:25 98.8 109 18 146/89 96 Room Air Sp02 EP Interpretation: reviewed, normal General Appearance: alert, GCS 15, non-toxic, mild distress Head: normocephalic, atraumatic Eyes: bilateral eye normal inspection, bilateral eye PERRL ENT: hearing grossly normal, normal pharynx, no angioedema, normal voice Neck: full range of motion, supple/symm/no masses Respiratory: chest non-tender, lungs clear, normal breath sounds, speaking full sentences Cardiovascular #1: regular rate, rhythm, no edema Cardiovascular #2: 2+ carotid (R), 2+ carotid (L), 2+ radial (R), 2+ radial (L) , 2+ dorsalis pedis (R), 2+ dorsalis pedis (L) Gastrointestinal: normal bowel sounds, non tender, soft, non-distended, no guarding, no rebound Rectal: deferred Genitourinary: normal inspection, no CVA tenderness Musculoskeletal: back normal, decreased range of motion, gait/station normal, swelling - R knee Neurologic: alert, motor strength/tone normal, oriented x3, sensory intact, responsive, speech normal Psychiatric: judgement/insight normal, memory normal, mood/affect normal, no suicidal/homicidal ideation Reflexes: 3+ bicep (R), 3+ bicep (L), 3+ tricep (R), 3+ tricep (L), 3+ knee (R) , 3+ knee (L) Skin: no rash Lymphatic: no adenopathy Procedures Splinting Splinting : Pre-Made Type: NAVIN wrap Pre-Proc Neuro Vasc Exam: normal Post-Proc Neuro Vasc Exam: normal Patient Tolerated: Well Complications: None Additional Procedure Procedure Narrative Patient placed in supine position. Pillows under the right knee. Right knee is then cleansed with Betadine. Area of most fluctuance palpated on the knee. Area is then injected with lidocaine. I was able to introduce I was able to introduce an 18-gauge needle into the joint. I was able to aspirate approximately 60 cc of bloody serous fluid. Patient tolerated procedure without complication. There was appreciable decrease in knee swelling after procedure. Dressings applied. Medical Decision Making Diagnostic Impression: Primary Impression: Knee swelling ER Course Hospital Course 54-year-old female presents to ED complaining of R knee swelling/pain no trauma Differential diagnoses include: Fracture, dislocation, sprain, contusion, bursitis Clinical course Patient placed on stretcher. After initial history, physical exam reveals an middle-aged female in no acute distress. There is noticeable swelling to the right knee joint compared to the left. Nonerythematous. Not indurated. I do not suspect septic joint. Patient has MRI which documents tears to the ligaments. I explained that this as well as some likely arthritis are contributing to hers swelling. She is requesting a knee tap. I explained that there is no emergent indication for a arthrocentesis and patient should follow-up with orthopedics as outpatient. Patient states she is currently waiting for authorization and is unable to sleep due to the pain. I agreed to perform arthrocentesis Using sterile technique we performed arthrocentesis and aspirated approximately 60 cc of serosanguineous fluid. There was noticeable swelling improvement after procedure. Dressings and Navin wrap applied. I discussed with patient that any future arthrocentesis will likely have to be performed by orthopedics. Recommend close follow-up with orthopedics. Diagnosis - knee swelling stable and discharged to home with prescription for percocet. Followup with PMD /ortho. Return to ED if symptoms recur or worsen Last Vital Signs Date Time Temp Pulse Resp B/P (MAP) Pulse Ox O2 Delivery O2 Flow Rate FiO2 06/24/19 13:16 98.8 109 18 146/89 96 Room Air Status: improved Disposition: HOME, SELF-CARE Condition: Stable Scripts Oxycodone/Acetaminophen 5-325* (PERCOCET 5-325 MG TABLET*) 1 Each Tablet 1 TAB ORAL Q6H PRN for For Pain, #12 TAB Prov: Chad Aldrich MD 06/24/19 Referrals: Neville Rea MD Patient Instructions: Knee Arthrocentesis, Care After Chad Aldrich MD Jun 25, 2019 07:22
== END 2019-06-24 13:20 | disposition home or self-care (01) ==
LOC: EMR 12:05
DX: R22.41 Localized swelling, mass and lump, right lower limb (principal); E11.9 Type 2 diabetes mellitus without complications; I10 Essential (primary) hypertension; Z88.8 Allergy status to other drugs, medicaments and biological substances; Z91.018 Allergy to other foods; E11.42 Type 2 diabetes mellitus with diabetic polyneuropathy
CPT/HCPCS: 99282; 99284

== ENCOUNTER 2019-06-27 08:38 | Outpatient (CLI) | payer OTHER ==
[~2019-06-27 08:38] MED LIST changes: +PERCOCET 5-3251 EACH ORAL
--- NOTE | 2019-06-27 12:51 | Diagnostic Imaging Report ---
INDICATION: Knee Pain COMPARISON: None 3 views of the left knee were obtained. Standing views. FINDINGS: No acute fracture, malalignment, or joint effusion are identified. Impression: Negative for acute injury
--- NOTE | 2019-06-27 12:52 | Diagnostic Imaging Report ---
Indication: Right knee Pain 3 views of the right knee were obtained. Standing views. Findings: No acute fracture, malalignment, or joint effusion are identified. Impression: Negative for acute findings.
== END 2019-06-27 10:38 | disposition home or self-care (01) ==
LOC: RAD 08:38
DX: M25.561 Pain in right knee (principal); M25.562 Pain in left knee